=== PATIENT | female | born 1985 | race Caucasian/White ===

== ENCOUNTER 2017-11-12 10:07 | Emergency (ER) | payer OTHER ==
[~2017-11-12 10:07] MED LIST: AMBIEN 10MG10 MG; AMBIEN 10MG10 MG PO; AMBIEN10 M1 PO; AMITIZA24 MC1 PO; ARIPIPRAZOLE2 MG PO; ATIVAN0.5 MG PO; BACTRIM DS TAB1 EACH PO; BENTYL20 M1 PO; BUTALBIT-ACETA1 EACH PO; CIPROFLOXACIN500 MG PO; CLONAZEPAM1 M2 PO; CLONAZEPAM1 MG PO; CYCLOBENZAPRINE10 M1 PO; CYMBALTA 30 MG30 MG PO; DENTA 5000 PLUS51 GM PO; DIAZEPAM10 M1 PO; DOXYCYCLINE HY100 M2 PO; FLAGYL500 MG PO; FLEXERIL10 MG PO; FLU VACCINE 0.0.5 ML IM; GUAIFENESIN-COD10 ML PO; IBUPROFEN800 M1 PO; IBUPROFEN800 MG PO; KETOROLAC TROME10 M1 PO; KLONOPIN 1MG TAB1 MG PO; KLONOPIN0.5 MG; KLONOPIN0.5 MG PO; LAMICTAL XR200 M1 PO; LAMICTAL100 M2 PO; LAMICTAL200 M1 PO; LAMICTAL25 M1 PO; LAMOTRIGINE100 M2 PO; LIDOCAINE35.44 GM; METHOCARBAMOL750 MG; MOBIC15 MG PO; MOBIC7.5 MG PO; MONISTAT 744 GM TOP; MORPHINE SULFAT30 M7 PO; NAPROXEN500 MG PO; NITROFURANTOIN25 MG PO; OXYCODONE-ACET1 EAC1 PO; PERCOCET 325 MG1 TA2 PO; PERCOCET 325 MG1 TAB PO; PERCOCET 5-3251 EACH PO; PERCOCET 7.5-31 EACH PO; PRAZOSIN HCL1 M1 PO; PROPRANOLOL HCL40 M1 PO; PYRIDIUM100 M1 PO; ROBAXIN 500MG500 MG PO; SOMA 350MG TAB350 MG PO; SULFAMETHOXAZO1 EAC1 PO; TIZANIDINE HCL4 M1 PO; VALIUM10 M1 PO; VALIUM2 MG PO; VALIUM5 M1 PO; VICODIN 5-3001 EACH PO; VITAMIN D32000 I1 PO; XANAX1 MG PO; ZANAFLEX4 MG PO; ZOFRAN ODT4 M1 PO; ZOFRAN ODT4 M1 SL; ZOFRAN ODT4 MG PO; ZOFRAN4 M2 PO; ZOLPIDEM TARTRA10 M1 PO; ZOLPIDEM TARTRA10 MG PO
[2017-11-12 12:16] LABS: ABSOLUTE BASOPHIL COUNT 0 /CUMM (0.0-0.2); ABSOLUTE EOSINOPHIL COUNT 0.2 /CUMM (0.0-0.7); ABSOLUTE GRANULOCYTE CT 4.5 /CUMM (1.4-6.5); ABSOLUTE LYMPH COUNT 1.8 /CUMM (1.2-3.4); ABSOLUTE MONOCYTE COUNT 0.5 /CUMM (0.10-0.60); BASOPHIL % 0.2 % (0.0-2.0); GRANULOCYTE % 64.7 % (42.2-75.2); HEMATOCRIT 38.8 % (37-47); MEAN CORPUSCULAR HGB CONC 34.5 G/DL (33.0-37.0); MEAN CORPUSCULAR VOLUME 89.8 FL (81.0-99.0); MEAN PLATELET VOLUME 8.8 FL (7.4-10.4); PLATELET COUNT 223 /CUMM (130-400); RBC DISTRIBUTION WIDTH 12.1 % (11.5-14.5); RED BLOOD CELL CT 4.32 /CUMM (4.20-5.40); WHITE BLOOD CELL COUNT 6.9 /CUMM (4.8-10.8)
--- NOTE | 2017-11-12 13:38 | ED GI/GU/ABDOMINAL COMPLAINT ---
History of Present Illness General Chief Complaint: Abdominal Pain/Flank Pain Stated Complaint: +V X 1 WEEK Source: patient, family, old records Exam Limitations: no limitations Vital Signs & Intake/Output Vital Signs & Intake/Output Vital Signs Date Time Temp Pulse Resp B/P B/P Pulse O2 O2 Flow FiO2 Mean Ox Delivery Rate 11/12 1624 64 18 105/57 100 11/12 1327 98.3 60 18 141/80 98 11/12 1014 98.1 70 16 127/89 98 Room Air Allergies Coded Allergies: hydromorphone (From DILAUDID) (Severe, ANAPHYLAXIS 10/21/15) Penicillins (Mild, RASH 10/21/15) Reconcile Medications Butalb/Acetaminophen/Caffeine (Osuntozd-Butrdxmvzgdmy-Whlm Cp) (Unknown Strength ) CAPSULE (Unknown Dose) PO AD PRN MIGRAINES (Reported) Cyclobenzaprine HCl 10 MG TABLET 1 TAB PO TID PRN PAIN Ibuprofen 800 MG TABLET 1 TAB PO TID PRN PAIN Lamotrigine (Lamictal) 200 MG TABLET 1 TAB PO DAILY MENTAL HEALTH (Reported) Lubiprostone (Amitiza) 24 MCG CAPSULE 1 CAP PO DAILY GI (Reported) Ondansetron (Zofran Odt) 4 MG TAB.RAPDIS 1 TAB SL TID PRN NAUSEA Oxycodone HCl/Acetaminophen (Percocet 7.5-325 MG Tablet) 7.5 MG-325 MG TABLET 1 TAB PO TID PAIN (Reported) Propranolol HCl 40 MG TABLET 1 TAB PO BID ANXIETY (Reported) Triage Note: PT TO ED C/O LOWER ABD PAIN. STATES THAT SHE HAS BEEN HAVING +N/V X1 WEEK WELL. WAS SEEN HERE LAST WEEK FOR THE SAME AND EVERYTHING WAS NEGATIVE. STATES THAT THE PAIN FEELS LIKE IT COULD BE IN HER BLADDER NOW WELL, HAS HX OF UTI/BLADDER INFECTIONS. Triage Nurses Notes Reviewed? yes ? N Is pt currently ? No HPI: Patient presents for evaluation of vomiting that began about 7-10 days ago. Patient was evaluated in the [facility] emergency Department with no etiology determined. She has been unable to follow up with her primary care doctor since. Patient states that she has felt very fatigued and does complain of significant night sweats. She feels she's also had a low-grade fever but otherwise denies dysuria diarrhea or consistent rashes. Interestingly, the patient states she gets migratory pruritic transient erythematous patches. Patient denies alcohol or drug use. She likewise denies known ill contacts, recent travel or suspicious meals. Her vomiting does respond to Zofran. Past History Travel History Traveled to [place] past 21 day No Medical History Any Pertinent Medical History? see below for history Neurological: migraine EENT: NONE Cardiovascular: heart murmur Respiratory: pneumonia Gastrointestinal: NONE Hepatic: NONE Renal: recurrent UTI's INTERSTITAL CYCSTISI Musculoskeletal: chronic back pain, disk herniation Psychiatric: anxiety, insomnia Endocrine: NONE Blood Disorders: NONE Cancer(s): NONE [employer]/Reproductive: endometriosis, OVARIAN CYST status post rupture History of MRSA: No History of VRE: No History of CDIFF: No Surgical History Surgical History: appendectomy, hysterectomy Psychosocial History Who do you live with Family Services at Home None What is your primary language Gabonese Tobacco Use: Never used Family History Hx Contributory? No Review of Systems Review of Systems Constitutional: Reports: no symptoms. EENTM: Reports: no symptoms. Respiratory: Reports: no symptoms. Cardiovascular: Reports: no symptoms. GI: Reports: see HPI. Genitourinary: Reports: no symptoms. Musculoskeletal: Reports: no symptoms. Skin: Reports: no symptoms. Neurological/Psychological: Reports: no symptoms. Hematologic/Endocrine: Reports: no symptoms. Immunologic/Allergic: Reports: no symptoms. All Other Systems: Reviewed and Negative Physical Exam Physical Exam Gastrointestinal: SEE BELOW Comments: Gen.: Well-nourished, well-developed, no acute respiratory distress. Head: Normocephalic, atraumatic. Eyes: Normal inspection bilaterally Ears: Normal inspection bilaterally Nose: Normal inspection Throat/mouth : Tacky mucosa Neck: Supple, full range of motion, no goiter Heart: Regular rate and rhythm, no murmurs rubs or gallops Lungs: Clear to auscultation bilaterally with normal air entry Chest: Nontender Back: Normal range of motion Abdomen: Soft, mild suprapubic tenderness without rebound or guarding, nondistended, normal bowel sounds Extremities: Normal range of motion grossly, equal radial pulses, no cyanosis clubbing or edema, calves nontender Neurologic: Cranial nerves grossly intact, speech is clear Skin: warm and dry Psychiatric: Calm, cooperative, no apparent delusions or hallucinations Core Measures ACS in differential dx? No Sepsis Present: No Sepsis Focused Exam Completed? No Progress Differential Diagnosis: biliary colic, cholecystitis, diverticulitis, gastritis, hepatitis, pancreatitis, PUD/GERD Plan of Care: Orders Procedure Date/time Status Add-on Test (ER Only) 11/12 1336 Active Add-on Test (ER Only) 11/12 1336 Active VDRL 11/12 1205 Active MONOSPOT TEST 11/12 1205 Active C-REACTIVE PROTEIN 11/12 1205 Complete URINE 11/12 1040 Complete URINALYSIS 11/12 1040 Complete LIPASE 11/12 1040 Complete COMPREHENSIVE METABOLIC PANEL 11/12 1040 Complete CBC WITHOUT DIFFERENTIAL 11/12 1040 Complete Laboratory Tests 11/12/17 1205: Lyme Disease Screen Pending 11/12/17 1205: Anion Gap 9, Estimated GFR > 60, BUN/Creatinine Ratio 12.9, Glucose 71, Calcium 9.6, Total Bilirubin 0.7, AST 21, ALT 16, Alkaline Phosphatase 42, C-Reactive Prot, Quant < 0.5, Total Protein 7.2, Albumin 4.4, Globulin 2.8, Albumin/ Globulin Ratio 1.6, Lipase 58, CBC w Diff NO MAN DIFF REQ, RBC 4.32, MCV 89.8, MCH 31.0, MCHC 34.5, RDW 12.1, MPV 8.8, Gran % 64.7, Lymphocytes % 25.5, Monocytes % 6.6, Eosinophils % 3.0, Basophils % 0.2, Absolute Granulocytes 4.5, Absolute Lymphocytes 1.8, Absolute Monocytes 0.5, Absolute Eosinophils 0.2, Absolute Basophils 0, RPR Titer/FTA Pending, Infectious [place] Titer NEGATIVE 11/12/17 1141: Urine Color YEL, Urine Clarity HAZY H, Urine pH 6.0, Ur Specific Jansen >= 1.030, Urine Protein NEG, Urine Ketones NEG, Urine Nitrite NEG, Urine Bilirubin NEG, Urine Urobilinogen 1.0, Ur Leukocyte Esterase NEG, Ur Microscopic SEDIMENT EXAMINED, Urine RBC RARE, Ur Epithelial Cells MOD H, Urine Bacteria FEW H, Urine Mucus MOD H, Micro UA Comment MORE INFO: H, Urine Hemoglobin NEG, Urine Glucose NEG, Urine Test NEGATIVE Diagnostic Imaging: Discussed w/RAD: Radiology Read. CXR Impression: PATIENT: MARYBEL HERMAN PRESENT AGE: 32 PATIENT ACCOUNT NO: [id number] : 84 LOCATION: [facility] ORDERING PHYSICIAN: Jack Belle MD SERVICE DATE: 11/12/173554 EXAM TYPE: RAD - XRY-CHEST XRAY, TWO VIEWS EXAMINATION: XR CHEST CLINICAL INFORMATION: Low-grade fever. Night sweats. Presumptive diagnosis of infiltrate, mediastinal nodes. COMPARISON : Chest x-ray dated 11/12/2015 and 10/29/2015 and 10/21/2015. TECHNIQUE: 2 views of the chest were obtained. FINDINGS: The cardiomediastinal silhouette is within normal limits in size. Lungs bilaterally are symmetrically hyperinflated. No focal consolidation, effusion or pneumothorax is seen. Subtle nodular densities are seen overlying the lower chest bilaterally, likely representing summation shadows of bronchovascular lung markings and ribs, unchanged from 11/12/2015. Minimal S-shaped thoracic scoliosis is seen. IMPRESSION: 1. Hyperinflated lungs. No focal pneumonia. 2. Subtle nodular densities over the lower chest bilaterally , likely related to summation shadows, unchanged from 11/12/2015. DICTATED BY: Hanh Youssef MD DATE/TIME DICTATED:11/12/171431 SCIENCE FACULTY MEMBER:HARDY DATE/TIME TRANSCRIBED:11/12/171431 CONFIDENTIAL, DO NOT COPY WITHOUT APPROPRIATE AUTHORIZATION. <Electronically signed in Other Vendor System> SIGNED BY: Hanh Youssef MD 11/12/17 1446 Initial ED EKG: none Comments: Patient declined an IV and saline infusion. Departure Departure Disposition: HOME OR SELF CARE Condition: Stable Clinical Impression Primary Impression: Vomiting Qualifiers: Vomiting type: unspecified Vomiting Intractability: non-intractable Nausea presence: with nausea Qualified Code: R11.2 - Nausea with vomiting, unspecified Referrals: Bella BERNSTEIN,Joni Lloyd (PCP/Family) Vincenzo Antunez MD Additional Instructions: Zofran as needed for nausea or vomiting. If nauseous then maintain a clear liquid diet and advance as tolerated. Follow-up with Tulio Garibay or Denzel (the GI specialists) this week. Return if any concerns or sudden worsening. Please note that there might be incidental findings in your evaluation that are unrelated to the current emergency department visit. Please notify your primary care doctor about this emergency department visit in order to obtain and review all of the testing performed so that these incidental findings can be monitored as needed. If you had an x-ray performed, please understand that some fractures or other findings may not be seen on the initial set of x-rays. If your symptoms persist you might need a repeat set of x-rays to check for such a fracture. If you had a laceration evaluated, please understand that foreign bodies such as glass or wood may not be visible to the naked eye or on plain x-rays. If the wound becomes red, swollen, increasingly more painful or if there is any drainage from the wound, please have it reevaluated by a physician for the possibility of a retained foreign body. If you're unable to follow up as outlined in the discharge instructions please return to the emergency department. Thank you for choosing the [facility] Emergency Department for your care. It was a pleasure to serve you today. Jack Belle M.D. [facility] Departure Forms: Customer Survey General Discharge Information Prescriptions: Current Visit Scripts Ondansetron (Zofran Odt) 1 TAB SL Q6 PRN NAUSEA/VOMITING #20 TAB
--- NOTE | 2017-11-12 14:43 | RADIOLOGY REPORT ---
EXAMINATION: XR CHEST CLINICAL INFORMATION: Low-grade fever. Night sweats. Presumptive diagnosis of infiltrate, mediastinal nodes. COMPARISON: Chest x-ray dated 11/12/2015 and 10/29/2015 and 10/21/2015. TECHNIQUE: 2 views of the chest were obtained. FINDINGS: The cardiomediastinal silhouette is within normal limits in size. Lungs bilaterally are symmetrically hyperinflated. No focal consolidation, effusion or pneumothorax is seen. Subtle nodular densities are seen overlying the lower chest bilaterally, likely representing summation shadows of bronchovascular lung markings and ribs, unchanged from 11/12/2015. Minimal S-shaped thoracic scoliosis is seen. IMPRESSION: 1. Hyperinflated lungs. No focal pneumonia. 2. Subtle nodular densities over the lower chest bilaterally, likely related to summation shadows, unchanged from 11/12/2015.
--- NOTE | 2017-11-12 16:13 | ULTRASOUND REPORT ---
EXAMINATION: US ABDOMEN LIMITED CLINICAL INFORMATION: Vomiting and night sweats.. COMPARISON: CT scan abdomen pelvis 09/13/2017. Ultrasound renal 12/31/2015. TECHNIQUE: Real-time imaging of the right upper quadrant abdominal viscera. Color Doppler exam used. FINDINGS: PANCREAS: Normal. LIVER: Normal. The liver demonstrates normal size, contour and echogenicity. No focal lesion or intrahepatic biliary duct dilatation. GALLBLADDER: Normal. The gallbladder is physiologically distended without evidence of stones, sludge, polyps, wall thickening or pericholecystic fluid. COMMON BILE DUCT: Normal in caliber measuring 0.3 cm in diameter. RIGHT KIDNEY: Normal. No hydronephrosis. No renal calculi or focal parenchymal lesions. The kidney measures 9.4 cm in maximum dimension. FREE FLUID: None. IMPRESSION: Normal ultrasound of the abdomen.
[2017-11-12 16:24] VITALS: BP 105/57
[2017-11-12] MEDS ORDERED: ZOFRAN ODT4 M1 SL (16:34)
== END 2017-11-12 16:39 ==
LOC: ERH 10:07
PROVIDERS: Physician Assistant Medical
DX: R11.10 Vomiting, unspecified (principal); F41.9 Anxiety disorder, unspecified; R01.1 Cardiac murmur, unspecified
CPT/HCPCS: 87476; 71046; 81001; 81025; J3101